=== PATIENT | male | born 2000 | race Caucasian/White ===

== ENCOUNTER 2023-05-08 11:47 | Emergency (ER) | payer OTHER, SELFPAY ==
[2023-05-08] VITALS (12 sets, daily range): BP systolic 148–181; BP diastolic 103–108; PULSE 85–134; RESP 13–24; TEMP 36.4; O2SAT 97–100
--- NOTE | ~2023-05-08 | CT_ITS ---
EXAMINATION: CT brain wo con INDICATION: Seizure activity COMPARISON: None TECHNIQUE: Standard unenhanced head CT. The dose-length product (DLP) was 529.67 mGy-cm. The mA was a djusted according to patient size. Iterative reconstruction technique was employed. FINDINGS: There is no intracranial hemorrhage, acute infarction, or abnormal mass lesion. The ventric les are normal. There is no abnormal mass effect or midline shift. The aparicio-white matter differentiat ion is normal. The basal cisterns are patent. The orbits are normal. There is mild mucosal thickening of the paranasal sinuses. There are small mastoid effusions. IMPRESSION: 1. No acute intracranial abnormality. Reviewed, dictated and finalized at location A.
--- NOTE | ~2023-05-08 | XR_ITS ---
EXAMINATION: XR chest 1V portable INDICATION: Seizure TECHNIQUE: Portable AP chest at 1321 hours COMPARISON: None available FINDINGS: The lungs are free of acute opacities. No pleural effusion or pneumothorax. The cardiomedia stinal silhouette is normal. The visualized bones and soft tissues are unremarkable. IMPRESSION: 1. No acute cardiopulmonary abnormality. Reviewed, dictated and finalized at location A.
--- NOTE | 2023-05-08 11:55 | ECG_ITS ---
Measurements Intervals [place] Rate: 116 P: 67 [place]: 155 QRS: 11 QRSD: 84 T: 37 QT: 321 QTc: 447 Interpretive Statements SINUS TACHYCARDIA ABNORMAL ECG NO PREVIOUS ECG AVAILABLE FOR COMPARISON Electronically Signed On 05-08-2023 13:15:00 CDT by Ildefonso Rebolledo D.O.
[2023-05-08 12:19] LABS: Basophils Absolute Auto 0.1 K/mm3 (0.0-0.1); Basophils Percent Auto 0.6 % (0.2-1.2); Eosinophils Absolute Auto 0.9 K/mm3 (0-0.3); Eosinophils Percent Auto 9.1 % (0-4.4); Hematocrit 45.1 % (42.0-52.0); Hemoglobin 15.3 g/dL (14.0-18.0); Immature Granulocyte Absolute 0.03 K/mm3 (0.00-0.031); Immature Granulocyte Percent A 0.3 % (0-0.5); Lymphocytes Absolute Auto 1.67 K/mm3 (0.9-3.2); Mean Corpuscular HGB Conc 33.9 g/dl (32-36); Mean Corpuscular Hemoglobin 29.7 pg (26-34); Mean Corpuscular Volume 87.6 fl (80-100); Mean Platelet Volume 9.2 fl (7.4-10.4); Monocytes Absolute Auto 0.9 K/mm3 (0.1-0.6); Monocytes Percent Auto 8.7 % (2.6-8.5); Neutrophils Absolute Auto 6.3 K/mm3 (1.3-6.7); Neutrophils Percent Auto 64.3 % (45.5-73.1); Platelet Count Result 429 k/mm3 (150-375); Red Blood Count 5.15 M/mm3 (4.6-6.20); Red Cell Distribution Width 12.5 % (11.5-14.5); White Blood Count 9.8 K/mm3 (4.5-10.0)
[2023-05-08 12:28] LABS: Alkaline Phosphatase 50 U/L (38-126); Anion Gap 18 mmol/L (8-16); Aspartate Amino Transferase 26 U/L (17-59); Bilirubin,Total 0.7 mg/dL (0.2-1.3); Blood Urea Nitrogen 7 mg/dL (9-20); Calcium 9.9 mg/dL (8.4-10.2); Carbon Dioxide 20 mmol/L (22-30); Chloride 102 mmol/L (98-107); Estimated CRCL calculation 100 ml/min; Estimated Glomerular Filt Rate > 60; Glucose 123 mg/dL (65-110); Potassium 3.9 mmol/L (3.4-5.0); Sodium 140 mmol/L (137-145)
[2023-05-08 12:30] LABS: Prothrombin Time 13.6 Seconds (11.1-14.7)
[2023-05-08 12:31] LABS: Partial Thromboplastin Time 23.7 SECONDS (22.3-36.8)
[2023-05-08 12:34] LABS: Alanine Aminotransferase 35 U/L (6-50)
[2023-05-08 12:35] LABS: Amorphous Sediment Urine Present; Appearance Urine Turbid (Clear); Bacteria Urine None Seen /hpf; Bilirubin Urine Negative (Negative); Blood Urine Negative (Negative); Color Urine Dark Yellow (Yellow); Glucose Urine UA Negative (Negative); Ketones Urine Trace mg/dL (Negative); Leukocyte Esterase Ur Negative LEU/UL (Negative); Nitrate Urine Negative (Negative); Protein Urine 2+ mg/dL (Negative); RBC Urine 0-2 /hpf (0-2); Specific Grav Ur 1.023 (1.001-1.035); Squamous Epithelial Cell Urine None seen /hpf (Few); WBC Urine 0-5 /hpf
[2023-05-08 12:36] LABS: Add Urine Microscopic? YES
[2023-05-08] MEDS: SODIUM CHLORIDE 0.9% IV 1,000 ML 999 ML IV CONT ×2 (13:15)
[2023-05-08 13:29] LABS: Creatine Kinase 83 U/L (55-170)
[2023-05-08 13:39] LABS: Ethanol < 10 mg/dL (<10)
--- NOTE | 2023-05-08 13:45 | ED.AMS ---
HPI - Altered Mental Status General Chief Complaint: Altered Mental Status Stated Complaint: AMS, drug use Time Seen by Provider: 05/08/23 12:39 Source: patient, family, EMS, RN notes reviewed and old records reviewed Mode of arrival: EMS Limitations: no limitations History of Present Illness HPI narrative: This is a 23 year old male with history of cocaine use who presents for evaluation of seizure activity. Patient states he was at his cousin's house and he remembers driving up. He woke up in ambulance. EMS states patient was found in car that was not running with no AC on. Patient was altered and diaphoretic. Patient states he was told by his cousin that he starting having a seizure while they were having a conversation. His cousin thought he was laughing. They report patient was unresponsive during seizure. Patient denies urinary incontinence or biting his tongue. PAtient reports history of seizures in the past but he does not take any medications. He denies alcohol use in 1 month. He does admit to using cocaine today. He states he think he had a seizure due to cocaine use. He jovanni any complaints right now. Related Data Home Medications Medication Instructions Recorded Confirmed No Home Medications 05/08/23 05/08/23 Allergies Allergy/AdvReac Type Severity Reaction Status Date / Time No Known Allergies Allergy Verified 05/08/23 11:54 Review of Systems Constitutional: Constitutional: Denies weakness Cardiovascular: Cardiovascular: Denies syncope, Denies rapid heart rate, Denies irregular heart rhythm, Denies leg edema and Denies dyspnea Respiratory: Respiratory: Denies chest congestion, Denies hemoptysis, Denies excessive phlegm production and Denies dyspnea Gastrointestinal: Gastrointestinal: Denies abdominal pain, Denies hematochezia, Denies diarrhea, Reports nausea and Reports vomiting Genitourinary: Genitourinary: Denies hematuria, Denies dysuria, Denies penile discharge and Denies testicular pain Musculoskeletal: Musculoskeletal: Denies joint swelling, Denies loss of height and Denies muscle weakness Neurologic: Denies syncope, Denies focal weakness and Denies weakness PMFSH Past Medical History Medical History (Updated 05/08/23 @ 19:26 by Iva Phillips MD) Polysubstance use disorder Seizure Surgical History Surgical History (Updated 05/08/23 @ 19:26 by Iva Phillips MD) No pertinent past surgical history Social History Social History (Updated 05/08/23 @ 19:26 by Iva Phillips MD) Alcohol intake: current Substance use type: marijuana and crack/cocaine Exam Const: General: no acute distress and alert Nutritional Appearance: well nourished Orientation/consciousness: patient oriented x3 Limitations: no limitations HENMT: Head: normal to inspection Mouth: Yes Normal oral and palatal mucosa present, Yes lip normal and Yes moist mucous membranes Throat: posterior oropharynx normal and uvula midline Eyes: Conjunctivae: conjunctivae normal Pupils: Equal, round and reactive pupils present EOM: EOMs intact bilaterally Neck: Neck: normal visual inspection Resp: Effort & Inspection: normal respiratory effort Auscultation: clear to auscultation bilaterally Cardio: Rate: regular rate Rhythm: regular rhythm Heart sounds: no murmurs GI: GI Palp: Yes Soft to palpation, No Tenderness to palpation present (GI), No Guarding due to palpation present (GI) and No Rigid due to palpation Auscultation: normal bowel sounds Skin: General skin exam: normal color Rashes: no rashes Wounds: no wounds Neuro: General: patient oriented x3, moves all extremities and CN's II-XI intact bilaterally Extrem: General: normal to inspection Psych: Mental Status: mental status grossly normal Affect: normal affect Attitude: cooperative Course Reevaluation(s) Reevaluation #1: Patient has no complaints. He was given 2 l iter IV NS bolus. HE is at his baseline. His parents are at bedsid
[2023-05-08 14:08] LABS: Amphetamine Screen Urine Negative (Negative); Barbiturate Screen Urine Negative (Negative); Benzodiazepines Screen Urine Negative (Negative); Cannabinoid Screen Urine Positive (Negative); Cocaine Screen Urine Positive (Negative); Methadone Screen Urine Negative (Negative); Opiate Screen Urine Negative (Negative); Phencyclidine Screen Urine Negative (Negative)
== END 2023-05-08 15:09 | disposition home or self-care (01) ==
PROVIDERS: Emergency Provider General Practice
DX: G40.909 Epilepsy, unspecified, not intractable, without status epilepticus (principal); F19.90 Other psychoactive substance use, unspecified, uncomplicated; R00.0 Tachycardia, unspecified
CPT/HCPCS: 36415; 70450; 71045; 80053; 80307; 81001; 82550; 85025; 85610; 85730; 93005; 96360; 96361; 99284; J7030

== ENCOUNTER 2024-07-29 17:47 | Emergency (ER) | payer OTHER, MEDICAID, SELFPAY ==
[2024-07-29] VITALS (9 sets, daily range): BP systolic 127–166; BP diastolic 81–101; PULSE 68–83; RESP 16–17; TEMP 37.2; O2SAT 96–99
--- NOTE | ~2024-07-29 | CT_ITS ---
EXAMINATION: CT abdomen pelvis w con DATE: 07/29/2024 20:57 INDICATION: Abdominal pain TECHNIQUE: Computed tomography (CT) of the abdomen and pelvis was performed with 100 CC Omnipaque 350 intravenous contrast. Automated exposure control and iterative reconstruction technique were employe d. Exam dose: 471.58 mGy-cm total exam DLP. COMPARISON: None. FINDINGS: Lung bases are clear of infiltrate or consolidation. Normal heart size. No pericardial or pleural effusion. The liver, gallbladder, bile ducts, pancreas, pancreatic duct and spleen are unremarkable. Normal morphology of the adrenal glands. No renal mass lesion. No urinary tract calculus or hydroureteronephrosis. The urinary bladder and pro state gland are unremarkable. Very small sliding hiatal hernia. Normal appendix. There is diffuse thickening of the wall of the colon suggesting colitis, which may be infectious or i nflammatory is an ulcerative colitis. No bowel obstruction or intraperitoneal free air. Normal caliber of the abdominal aorta. No intraperitoneal or retroperitoneal or pelvic mass lesion or adenopathy or ascites. Small fat-containing umbilical hernia The skeletal structures are unremarkable. No evidence of sacroiliitis. IMPRESSION: Diffuse colitis, which may be infectious or inflammatory; Versed of colitis is not exclu ded Normal appendix Very small sliding hiatal hernia Reviewed, dictated and finalized at Location A. Reviewed, dictated and finalized at location A. IMPRESSION: Diffuse colitis, which may be infectious or inflammatory; Versed o f colitis is not excluded Normal appendix Very small sliding hiatal hernia
[2024-07-29 18:23] LABS: Basophils Absolute Auto 0.1 K/mm3 (0.0-0.1); Basophils Percent Auto 0.6 % (0.2-1.2); Eosinophils Absolute Auto 0.2 K/mm3 (0-0.3); Eosinophils Percent Auto 2.1 % (0-4.4); Hemoglobin 15.8 g/dL (14.0-18.0); Immature Granulocyte Absolute 0.02 K/mm3 (0.00-0.031); Immature Granulocyte Percent A 0.2 % (0-0.5); Lymphocytes Absolute Auto 2.32 K/mm3 (0.9-3.2); Lymphocytes Percent Auto 22.4 % (18.3-44.2); Mean Corpuscular HGB Conc 34.3 g/dl (32-36); Mean Corpuscular Hemoglobin 30.9 pg (26-34); Mean Platelet Volume 9.3 fl (7.4-10.4); Monocytes Absolute Auto 0.7 K/mm3 (0.1-0.6); Monocytes Percent Auto 7.1 % (2.6-8.5); Neutrophils Percent Auto 67.6 % (45.5-73.1); Platelet Count Result 380 k/mm3 (150-375); Red Blood Count 5.11 M/mm3 (4.6-6.20); Red Cell Distribution Width 12.2 % (11.5-14.5); White Blood Count 10.3 K/mm3 (4.5-10.0)
[2024-07-29 18:34] LABS: Add Urine Microscopic? YES; Appearance Urine Turbid (Clear); Bacteria Urine None Seen /hpf; Bilirubin Urine 1+ (Negative); Blood Urine Negative (Negative); Color Urine Dark Yellow (Yellow); Glucose Urine UA Negative (Negative); Ketones Urine Trace mg/dL (Negative); Leukocyte Esterase Ur 1+ LEU/UL (Negative); Mucus Urine Present /lpf; Need Manual Microscopic Reviewed; Nitrate Urine Negative (Negative); Non Pathogenic Casts 0-2; Protein Urine 1+ mg/dL (Negative); RBC Urine 0-2 /hpf (0-2); Specific Grav Ur 1.033 (1.001-1.035); Squamous Epithelial Cell Urine None Seen /hpf (Few); WBC Urine 0-5 /hpf (0-3); pH Urine 7.5 (5.0-9.0)
[2024-07-29 18:38] LABS: Alanine Aminotransferase 25 U/L (6-50); Alkaline Phosphatase 63 U/L (38-126); Anion Gap 6 mmol/L (4-12); Aspartate Amino Transferase 26 U/L (17-59); Bilirubin,Total 0.9 mg/dL (0.2-1.3); Blood Urea Nitrogen 8 mg/dL (9-20); Calcium 9.4 mg/dL (8.4-10.2); Carbon Dioxide 30 mmol/L (22-30); Chloride 95 mmol/L (98-107); Estimated CRCL calculation 103 ml/min; Estimated Glomerular Filt Rate > 60; Glucose 109 mg/dL (65-110); Lipase 84 U/L (23-300); Potassium 3.5 mmol/L (3.4-5.0); Sodium 131 mmol/L (137-145)
[2024-07-29] MEDS: ONDANSETRON INJ 4 MG/2 ML VIAL IV PUSH (20:23)
[2024-07-29] MEDS: SODIUM CHLORIDE 0.9% IV 1,000 ML 999 ML IV CONT (20:23)
[2024-07-29] MEDS: MORPHINE SULFATE (*CRX) 4 MG/ML INJ IV PUSH (20:24)
--- NOTE | 2024-07-29 20:34 | PC.NURSE ---
Patient taken to CT via stretcher at this time.
--- NOTE | 2024-07-29 21:42 | ED.GENADULT ---
HPI - General Adult General Chief complaint: Abdominal Pain Stated complaint: left flank pain Time Seen by Provider: 07/29/24 19:43 History of Present Illness HPI narrative: Patient is a 24-year-old gentleman presents emergency department with chief complaint of abdominal pain. Patient reports that he has been having pain for years but over the last several days has been having worsening pain the patient states he has had no diarrhea but has had some nausea the patient reports no fever reports abdomen is cramping throughout. The patient states this is the worse than any pain he has ever had in his abdomen. The patient reports he is not currently seeing a primary reports he has not seen GI Related Data Allergies Allergy/AdvReac Type Severity Reaction Status Date / Time No Known Allergies Allergy Verified 05/08/23 11:54 Review of Systems Review of Systems: A 10 system review of systems was completed on the patient and is negative except for what is stated in the HPI. Nursing and ancillary documentation was reviewed. PMFSH Past Medical History Medical History Polysubstance use disorder Seizure Surgical History Surgical History No pertinent past surgical history Social History Social History Alcohol intake: current Substance use type: marijuana and crack/cocaine Exam Narrative: GENERAL: Well-appearing, well-nourished, and in no acute distress. HEAD: Normocephalic, atraumatic. EYES: PERRLA and EOMI. ENT: Nares clear, no rhinorrhea or epistaxis. Mucous membranes moist. NECK: Supple. CHEST: Clear to auscultation. No respiratory distress. HEART: Regular rate and rhythm. No murmur heard. Normal peripheral pulses. ABDOMEN: Soft, tenderness to palpation lower quadrants of the abdomen, nondistended, normal active bowel sounds. EXTREMITIES: Normal range of motion. No edema. SKIN: Warm, dry, no rash. NEURO: No focal deficits. Alert and oriented x3. PSYCH: Normal mood and affect. Course Vital Signs Vital signs: Vital Signs Temperature 37.2 C 07/29/24 18:00 Pulse Rate 83 07/29/24 18:00 Respiratory Rate 17 07/29/24 18:00 Blood Pressure 166/101 H 07/29/24 18:00 Pulse Oximetry 99 07/29/24 18:00 Temperature 37.2 C 07/29/24 18:00 Pulse Rate 68 07/29/24 21:31 Respiratory Rate 17 07/29/24 21:31 Blood Pressure 127/81 07/29/24 21:31 Pulse Oximetry 98 07/29/24 21:31 Medical Decision Making MDM Narrative Medical decision making narrative: Differential diagnosis includes colitis, diverticulitis, appendicitis, intra-abdominal infection, abscess, UTI, ureterolithiasis Laboratory studies were obtained showed a CBC with a white count of 10.3 electrolytes are within normal limits urinalysis showed 1+ leukocyte esterase CT scan of the abdomen pelvis showed Diffuse colitis, which may be infectious or inflammatory; Versed of colitis is not excluded Normal appendix Very small sliding hiatal hernia The patient was started on Cipro and Flagyl and discharged follow-up with primary care and also GI Vital Signs Vital Signs: Vital Signs Temperature 37.2 C 07/29/24 18:00 Pulse Rate 83 07/29/24 18:00 Respiratory Rate 17 07/29/24 18:00 Blood Pressure 166/101 H 07/29/24 18:00 Pulse Oximetry 99 07/29/24 18:00 Temperature 37.2 C 07/29/24 18:00 Pulse Rate 68 07/29/24 21:31 Respiratory Rate 17 07/29/24 21:31 Blood Pressure 127/81 07/29/24 21:31 Pulse Oximetry 98 07/29/24 21:31 Lab Data 07/29/24 18:15 07/29/24 18:15 Labs: Lab Results 07/29/24 07/29/24 Range/Units 18:15 18:16 WBC 10.3 H (4.5-10.0) K/mm3 RBC 5.11 (4.6-6.20) M/mm3 Hgb 15.8 (14.0-18.0) g/dL Hct 46.0 (42.0-52.0) % MCV 90.0 (80-100
[2024-07-29] MEDS: metroNIDAZOLE 500 MG TABLET PO (21:52)
[2024-07-29] MEDS: CIPROFLOXACIN 500 MG TAB PO (21:52)
== END 2024-07-29 21:59 | disposition home or self-care (01) ==
PROVIDERS: Emergency Medicine; Emergency Provider Emergency Medicine
DX: K52.9 Noninfective gastroenteritis and colitis, unspecified (principal)
CPT/HCPCS: 36415; 74177; 80053; 81001; 83690; 85025; 87086; 96361; 96374; 96375; 99284; A9270; J2270; J2405; J7030; Q9967

== ENCOUNTER 2024-08-07 10:07 | Outpatient (CLI) | payer MEDICAID, SELFPAY ==
[2024-08-07 11:08] LABS: CRP < 0.5 mg/dL (<1.0)
[2024-08-07 11:29] LABS: Hepatitis B Surface Antigen Negative (Negative)
[2024-08-07 11:31] LABS: Erythrocyte Sedimentation Rate 11 mm/hr (0-20)
[2024-08-07 11:35] LABS: HAV RESULT Negative (Negative); Hepatitis B Core IgM Result Negative (Negative)
[2024-08-07 11:47] LABS: Hepatitis C Virus Antibody Negative (Negative)
[2024-08-11 09:04] LABS: Immunoglobulin A 224 mg/dL (47-310); TTG IGA AB <1.0 U/mL
== END 2024-08-07 10:08 | disposition home or self-care (01) ==
PROVIDERS: Visit Provider Nurse Practitioner
DX: K52.9 Noninfective gastroenteritis and colitis, unspecified (principal); R10.9 Unspecified abdominal pain; G89.29 Other chronic pain; R11.2 Nausea with vomiting, unspecified
CPT/HCPCS: 36415; 80074; 82784; 84443; 85652; 86140; 86364

== ENCOUNTER 2024-08-08 09:33 | Outpatient (CLI) | payer MEDICAID, SELFPAY | END 2024-08-08 09:34 | disposition home or self-care (01) | PROVIDERS: Visit Provider Nurse Practitioner | DX: K52.9 Noninfective gastroenteritis and colitis, unspecified (principal); R10.9 Unspecified abdominal pain; G89.29 Other chronic pain; R11.2 Nausea with vomiting, unspecified | CPT/HCPCS: 87045; 87427; 87449 ==

== ENCOUNTER 2024-08-17 00:16 | Emergency (ER) | payer OTHER, MEDICAID, SELFPAY ==
--- NOTE | ~2024-08-17 | CT_ITS ---
CT of the Abdomen and Pelvis: Indication: Colitis Technique: 2.5 mm axial scans were obtained through the abdomen and pelvis following intravenous adm inistration of 100 cc of Omnipaque 350. Dose reduction technique was used on this scan by utilizing a utomated exposure control and iterative reconstruction technique. The dose-length product (DLP) was 3 52.87 mGy-cm. COMPARISON: 07/29/2024 Findings: Scans through the lung bases are unremarkable. The liver, spleen, pancreas, gallbladder, adrenals and kidneys are within normal limits. No evidence of aortic aneurysm. No lymphadenopathy. Suggestion of mild large bowel wall thickening at the sigmoid colon and rectum, possibly the transver se colon. No bowel obstruction. No abscess or free air. Images through the pelvis were performed. Urinary bladder unremarkable. No pelvic mass seen. No ascit es. Impression: Probable mild infectious/inflammatory colitis of the sigmoid colon and rectum. Questionable involveme nt transverse colon versus underdistention. Findings overall are mildly improved from prior exam. Reviewed, dictated and finalized at location . Impression: Probable mild infectious/inflammatory colitis of the sigmoid colon and rectum. Questionable involvement transverse colon versus underdistention. Findings over all are mildly improved from prior exam.
[2024-08-17 00:19] VITALS: BP 142/94; PULSE 77; RESP 18; TEMP 36.8; O2SAT 100
--- NOTE | 2024-08-17 00:39 | ED.ABDPAIN ---
HPI - Abdominal Pain General Chief Complaint: Abdominal Pain Stated Complaint: abd pain Time Seen by Provider: 08/17/24 00:31 History of Present Illness HPI narrative: 24-year-old male with a history of colitis presents to the emergency room for repeat evaluation of continued pain in his left lower quadrant. He does complete a course of Cipro and Flagyl and recently followed up with the GI doctor 10 days prior. Is going through outpatient evaluation was stool studies and upper and lower endoscopy that will be scheduled shortly. He states that today during dinner use having worsening pain is left lower quadrant and want to come to the ER for evaluation. Took a Vicodin home without any relief of his symptoms. Denies any trauma recent injuries or other illnesses aside from the recent colitis flare. Family history of inflammatory bowel disease and currently being evaluated for this by his GI doctor. No fever, chills, chest pain, shortness a breath, constipation. He states he has been having loose stools ever since his antibiotics but they are soft and not liquidy. No melena or bright red blood per rectum. Related Data Allergies Allergy/AdvReac Type Severity Reaction Status Date / Time No Known Allergies Allergy Verified 08/07/24 09:31 Review of Systems Review of Systems: As reviewed above in HPI [facility] Past Medical History Medical History Polysubstance use disorder Seizure Surgical History Surgical History History of shoulder surgery No pertinent past surgical history Social History Social History Smoking status: Unknown if ever smoked Alcohol intake: current Substance use type: marijuana and crack/cocaine Exam Narrative: GENERAL: [Well-appearing, well-nourished, and in no acute distress.] HEAD: [Normocephalic, atraumatic.] EYES: [PERRLA and EOMI.] ENT: Nares clear, no rhinorrhea or epistaxis. Mucous membranes moist. NECK: Supple. CHEST: [Clear to auscultation. No respiratory distress.] HEART: [Regular rate and rhythm]. No murmur heard. [Normal peripheral pulses.] ABDOMEN: [Soft, nondistended], mild tenderness to palpation left lower quadrant without peritonitis rebound., [No rigidity or guarding] EXTREMITIES: Normal range of motion. [No edema.] SKIN: Warm, dry, no rash. NEURO: [No focal deficits]. Alert and oriented [x3.] PSYCH: [Normal mood and affect.] Course Vital Signs Vital signs: Vital Signs Temperature 36.8 C 08/17/24 00:19 Pulse Rate 77 08/17/24 00:19 Respiratory Rate 18 08/17/24 00:19 Blood Pressure 142/94 H 08/17/24 00:19 Pulse Oximetry 100 08/17/24 00:19 Oxygen Delivery Room Air 08/17/24 00:19 Temperature 36.8 C 08/17/24 00:19 Pulse Rate 71 08/17/24 05:16 Respiratory Rate 15 08/17/24 05:16 Blood Pressure 138/92 H 08/17/24 05:16 Pulse Oximetry 100 08/17/24 05:16 Oxygen Delivery Room Air 08/17/24 00:19 MDM - Abdominal Pain MDM Narrative Medical decision making narrative: 24-year-old male with history of colitis presenting to the ED for evaluation of continued pain is left lower quadrant. Recently completed Cipro Flagyl and followed up with GI. Is going through outpatient upper and lower endoscopy but not scheduled just yet. Has a soft nondistended but mildly tender to palpation abdomen left lower quadrant. Afebrile with normal reassuring vital signs otherwise. He appears well in any acute distress and not ill-appearing. Laboratory studies were obtained he was treated with a weight based dose of morphine given Zofran fluid bolus. CT scan with contrast was obtained. Laboratory studies reassuring with no leukocytos or anemia. Electrolytes are within normal limits, normal hepatic and renal function panel. Negative lactic acid. Urinalysis unremarkable
[2024-08-17 00:40] LABS: Basophils Percent Auto 0.4 % (0.2-1.2); Eosinophils Absolute Auto 0.3 K/mm3 (0-0.3); Eosinophils Percent Auto 3.9 % (0-4.4); Hematocrit 44.4 % (42.0-52.0); Hemoglobin 15.4 g/dL (14.0-18.0); Immature Granulocyte Absolute 0.01 K/mm3 (0.00-0.031); Immature Granulocyte Percent A 0.1 % (0-0.5); Lymphocytes Absolute Auto 2.01 K/mm3 (0.9-3.2); Mean Corpuscular HGB Conc 34.7 g/dl (32-36); Mean Corpuscular Hemoglobin 31.2 pg (26-34); Mean Corpuscular Volume 90.1 fl (80-100); Monocytes Absolute Auto 0.6 K/mm3 (0.1-0.6); Monocytes Percent Auto 8.6 % (2.6-8.5); Neutrophils Absolute Auto 4.5 K/mm3 (1.3-6.7); Platelet Count Result 345 k/mm3 (150-375); Red Blood Count 4.93 M/mm3 (4.6-6.20); Red Cell Distribution Width 12.1 % (11.5-14.5); White Blood Count 7.4 K/mm3 (4.5-10.0)
[2024-08-17 00:45] LABS: Add Urine Microscopic? YES; Appearance Urine Cloudy (Clear); Bacteria Urine None Seen /hpf; Bilirubin Urine Negative (Negative); Blood Urine Negative (Negative); Color Urine Yellow (Yellow); Glucose Urine UA Negative (Negative); Ketones Urine Negative (Negative); Leukocyte Esterase Ur Negative LEU/UL (Negative); Nitrate Urine Negative (Negative); Non Pathogenic Casts 0-2; Protein Urine Negative (Negative); RBC Urine 0-2 /hpf (0-2); Specific Grav Ur 1.021 (1.001-1.035); Squamous Epithelial Cell Urine None Seen /hpf (Few); WBC Urine 0-5 /hpf (0-3); pH Urine 6.5 (5.0-9.0)
[2024-08-17 00:51] LABS: Alanine Aminotransferase 20 U/L (6-50); Albumin Level 4.4 g/dL (3.5-5.1); Alkaline Phosphatase 63 U/L (38-126); Anion Gap 6 mmol/L (4-12); Aspartate Amino Transferase 21 U/L (17-59); Bilirubin,Total 0.4 mg/dL (0.2-1.3); Blood Urea Nitrogen 12 mg/dL (9-20); Calcium 9.2 mg/dL (8.4-10.2); Carbon Dioxide 32 mmol/L (22-30); Chloride 102 mmol/L (98-107); Estimated CRCL calculation 111 ml/min; Estimated Glomerular Filt Rate > 60; Glucose 99 mg/dL (65-110); Lipase 137 U/L (23-300); Potassium 3.5 mmol/L (3.4-5.0); Sodium 140 mmol/L (137-145)
[2024-08-17] MEDS: ONDANSETRON INJ 4 MG/2 ML VIAL IV PUSH (00:53)
[2024-08-17] MEDS: LACTATED RINGERS 1,000 ML 999 ML IV CONT (00:53)
[2024-08-17] MEDS: MORPHINE SULFATE (*CRX) 4 MG/ML INJ IV PUSH (00:54)
[2024-08-17 03:07] LABS: Lactic Acid Reflex 0.8 mmol/L (0.7-2.0)
[2024-08-17 03:13] VITALS: BP 126/80; PULSE 56; RESP 15; O2SAT 100
[2024-08-17 05:16] VITALS: BP 138/92; PULSE 71; RESP 15; O2SAT 100
[2024-08-17 06:59] VITALS: BP 132/94; PULSE 67; RESP 15; O2SAT 100
== END 2024-08-17 07:01 | disposition home or self-care (01) ==
PROVIDERS: Emergency Provider Student in an Organized Health Care Education/Training Program
DX: K52.9 Noninfective gastroenteritis and colitis, unspecified (principal); R10.9 Unspecified abdominal pain; G89.29 Other chronic pain
CPT/HCPCS: 36415; 74177; 80053; 81001; 83605; 83690; 85025; 96361; 96374; 96375; 99284; J2270; J2405; J7120; Q9967

== ENCOUNTER 2024-08-20 00:35 | Day surgery (SDC) | payer OTHER, MEDICAID, SELFPAY ==
[2024-08-17 12:05] VITALS: BMI 27.0
[2024-08-20 06:59] VITALS: BP 134/86; PULSE 52; RESP 18; TEMP 36.3; O2SAT 100
[2024-08-20] MEDS: LACTATED RINGERS 1,000 ML 150 ML IV CONT (07:08)
--- NOTE | 2024-08-20 07:33 | P.PNAN_ITS ---
Anes - Initial Pre Proc Eval Procedure: Operation Date: 08/20/24 08:00 Proposed Procedures p Esophagogastroduodenoscopy & Colonoscopy - Andrea Khan MD Date/Time: 08/20/24 07:33 Surgeon: Andrea Khan MD Pre Op Diagnosis: Nausea and Vomiting/ colitis Patient Data Age: 24 Gender: M Height: 1.68 m Weight: 77.3 kg Last Vital Signs Temp 36.3 C L 08/20/24 06:59 Pulse 52 L 08/20/24 06:59 Resp 18 08/20/24 06:59 BP 134/86 08/20/24 06:59 Pulse Ox 100 08/20/24 06:59 O2 Del Method Room Air 08/20/24 06:59 Allergies Allergy/AdvReac Type Severity Reaction Status Date / Time No Known Allergies Allergy Verified 08/20/24 06:55 Home Medications Medication Instructions Recorded Confirmed Type amoxicillin 875 mg-potassium 1 tablet PO Q12H 10 days #20 tabs 08/17/24 08/20/24 Rx clavulanate 125 mg tablet dicyclomine 20 mg tablet 20 mg PO TID PRN abdominal pain 08/17/24 08/20/24 Rx #20 tabs ondansetron 4 mg disintegrating 4 mg PO Q8H PRN nausea and 08/17/24 08/20/24 Rx tablet vomiting #10 tabs Patient hx anesthesia problems: none Family hx anesthesia problems: none Results Review: All pre-operative results and documents have been reviewed as part of the pre- operative evaluation. [facility] Past Medical History Medical History Polysubstance use disorder Seizure Surgical History Surgical History History of shoulder surgery No pertinent past surgical history Social History Social History Smoking status: Unknown if ever smoked Alcohol intake: former Drinks per week: 4 Substance use: current Substance use type: marijuana and crack/cocaine Other substance usage details: crack/cocaine quit 11/2023 Living arrangements: with family Spiritual care concerns: No Anes - Eval Final PreProcedure Day of Procedure 08/20/24 07:33 Patient weight: overweight Heart: regular rate and rhythm Lungs: clear to auscultation Airway: Mallampati scale class II Neurological: alert and oriented Last oral intake: >/= 8 hours ASA classification: II Emergent: no Anesthetic plan: proceed Anesthesia type and monitoring: general GIVS and standard monitoring Results Review: All pre-operative results and documents have been reviewed as part of the pre- operative evaluation. Informed Consent: The patient's anesthetic plan and its attendant risks and benefits were discussed with the patient/family/POA. Questions were solicited and answers provided to the satisfaction of the patient/family/POA.
--- NOTE | 2024-08-20 07:54 | WPDHPUPDATE1 ---
History and Physical Update Update Date/Time: 08/20/24 07:54 History and Physical has been reviewed, including an updated exam of the patient. There are NO changes in the patient's condition. Risks, benefits, and alternatives have been discussed and questions answered. Patient agrees to proceed with procedure.
--- NOTE | 2024-08-20 08:11 | SUR.OPER ---
EGD completed at 806,colonoscopy started at 810
[2024-08-20 08:23] VITALS: BP 110/65; PULSE 68; RESP 22; O2SAT 97
[2024-08-20 08:33] VITALS: BP 109/61; PULSE 62; RESP 18; O2SAT 97
[2024-08-20 08:43] VITALS: BP 117/77; PULSE 73; RESP 20; O2SAT 97
== END 2024-08-20 08:48 | disposition home or self-care (01) ==
PROVIDERS: Referring Provider Nurse Practitioner; Visit Provider Internal Medicine Gastroenterology
PROC: 0DJ08ZZ Inspection of Upper Intestinal Tract, Via Natural or Artificial Opening Endoscopic (ICD-10-PCS; CPT 43235; principal; 2024-08-20 08:00)
DX: K29.50 Unspecified chronic gastritis without bleeding (principal); K31.89 Other diseases of stomach and duodenum; F19.90 Other psychoactive substance use, unspecified, uncomplicated; R56.9 Unspecified convulsions; G89.29 Other chronic pain; F14.11 Cocaine abuse, in remission; Z98.890 Other specified postprocedural states
CPT/HCPCS: 43239; 45378; 88305; J2003; J2704; J7120

== ENCOUNTER 2024-08-29 05:35 | Emergency (ER) | payer OTHER, MEDICAID, SELFPAY ==
--- NOTE | ~2024-08-29 | CT_ITS ---
EXAMINATION: CT abdomen pelvis w con DATE: 08/29/2024 06:50 INDICATION: Abdominal pain. TECHNIQUE: Computed tomography (CT) of the abdomen and pelvis was performed with 100 mL Omnipaque 350 intravenous contrast. Automated exposure control and iterative reconstruction technique were employe d. The dose-length product was 447.22 mGy-cm. COMPARISON: CT abdomen and pelvis 08/17/24 FINDINGS: The visualized portions of the lung bases are clear without pneumonia or pleural effusion. The heart size is normal. No pericardial effusion. The liver, gallbladder, spleen, pancreas, adrenal glands, and kidneys are normal. There are no dilated loops of bowel. The appendix is normal. There ar e no pathologically enlarged lymph nodes. There is no free intraperitoneal fluid. There is an umbilic al hernia containing fat. The bones are unremarkable. IMPRESSION: 1. Umbilical hernia containing fat. Reviewed, dictated and finalized at location A.
[2024-08-29 05:59] VITALS: BP 143/81; PULSE 78; RESP 18; TEMP 36.7; O2SAT 100
[2024-08-29 06:13] LABS: Basophils Percent Auto 0.5 % (0.2-1.2); Eosinophils Absolute Auto 0.3 K/mm3 (0-0.3); Eosinophils Percent Auto 4.3 % (0-4.4); Hematocrit 44.4 % (42.0-52.0); Hemoglobin 15.1 g/dL (14.0-18.0); Immature Granulocyte Absolute 0.03 K/mm3 (0.00-0.031); Immature Granulocyte Percent A 0.5 % (0-0.5); Lymphocytes Absolute Auto 1.07 K/mm3 (0.9-3.2); Lymphocytes Percent Auto 16.3 % (18.3-44.2); Mean Corpuscular Hemoglobin 31.3 pg (26-34); Mean Corpuscular Volume 91.9 fl (80-100); Mean Platelet Volume 9.4 fl (7.4-10.4); Monocytes Absolute Auto 0.6 K/mm3 (0.1-0.6); Monocytes Percent Auto 8.5 % (2.6-8.5); Neutrophils Absolute Auto 4.6 K/mm3 (1.3-6.7); Neutrophils Percent Auto 69.9 % (45.5-73.1); Platelet Count Result 313 k/mm3 (150-375); Red Blood Count 4.83 M/mm3 (4.6-6.20); Red Cell Distribution Width 11.9 % (11.5-14.5); White Blood Count 6.6 K/mm3 (4.5-10.0)
[2024-08-29 06:18] LABS: Add Urine Microscopic? NO; Appearance Urine Clear (Clear); Bilirubin Urine Negative (Negative); Blood Urine Negative (Negative); Color Urine Yellow (Yellow); Glucose Urine UA Negative (Negative); Ketones Urine Negative (Negative); Leukocyte Esterase Ur Negative LEU/UL (Negative); Nitrate Urine Negative (Negative); Protein Urine Negative (Negative); Specific Grav Ur 1.016 (1.001-1.035); Urobilinogen Urine 0.2 mg/dL (<2.0)
[2024-08-29 06:27] LABS: Alanine Aminotransferase 28 U/L (6-50); Albumin Level 4.6 g/dL (3.5-5.1); Alkaline Phosphatase 66 U/L (38-126); Anion Gap 7 mmol/L (4-12); Aspartate Amino Transferase 22 U/L (17-59); Bilirubin,Total 0.4 mg/dL (0.2-1.3); Blood Urea Nitrogen 9 mg/dL (9-20); Calcium 9.3 mg/dL (8.4-10.2); Carbon Dioxide 30 mmol/L (22-30); Chloride 103 mmol/L (98-107); Estimated CRCL calculation 111 ml/min; Estimated Glomerular Filt Rate > 60; Glucose 99 mg/dL (65-110); Lipase 74 U/L (23-300); Potassium 4.2 mmol/L (3.4-5.0); Sodium 140 mmol/L (137-145)
--- NOTE | 2024-08-29 07:27 | ED_ITS ---
HPI - Abdominal Pain General Chief Complaint: Abdominal Pain Stated Complaint: abd pain Time Seen by Provider: 08/29/24 06:55 History of Present Illness HPI narrative: Patient is a 24-year-old male who presents ER with diffuse abdominal pain. Cramping in nature. Has had evaluations past by GI and has been told that he has gastritis. She takes omeprazole daily. He also has Bentyl at home that he takes on occasion. Symptoms may occur before or after eating. They can occur in the evening or in the morning. His no diarrhea or blood in his stool this time. No known sick contacts. Denies urinary symptoms. Related Data Allergies Allergy/AdvReac Type Severity Reaction Status Date / Time No Known Allergies Allergy Verified 08/20/24 06:55 Review of Systems Review of Systems: All systems reviewed & are unremarkable except as noted in HPI and below Constitutional: Constitutional: Reports no additional constitutional complaints Cardiovascular: Cardiovascular: Reports no additional cardiovascular complaints Respiratory: Respiratory: Reports no additional respiratory complaints Gastrointestinal: Gastrointestinal: Reports abdominal pain, Denies diarrhea, Denies nausea and Denies vomiting Genitourinary: Genitourinary: Reports no additional male genitourinary compl aints [facility] Past Medical History Medical History Polysubstance use disorder Seizure Surgical History Surgical History History of shoulder surgery No pertinent past surgical history Social History Social History Smoking status: Unknown if ever smoked Alcohol intake: former Drinks per week: 4 Substance use: current Substance use type: marijuana and crack/cocaine Other substance usage details: crack/cocaine quit 11/2023 Living arrangements: with family Spiritual care concerns: No Exam Narrative: GENERAL: Well-appearing, well-nourished, and in no acute distress. HEAD: Normocephalic, atraumatic. ENT: Mucous membranes moist. CHEST: Clear to auscultation. No respiratory distress. HEART: Regular rate and rhythm. Normal peripheral pulses. ABDOMEN: Soft, nontender, nondistended. EXTREMITIES: Normal range of motion. No edema. SKIN: Warm, dry, no rash. NEURO: Alert and oriented x3. PSYCH: Normal mood and affect. Course Course Emergency Course: Looks well. Benign exam. Lab work and imaging without acute issue. May have IBS. Recommend follow-up with GI are PCP. Also encouraged patient to increase dose of omeprazole to twice a day. Vital Signs Vital signs: Vital Signs Temperature 98.1 F 08/29/24 05:59 Pulse Rate 78 08/29/24 05:59 Respiratory Rate 18 08/29/24 05:59 Blood Pressure 143/81 H 08/29/24 05:59 Pulse Oximetry 100 08/29/24 05:59 Temperature 98.1 F 08/29/24 05:59 Pulse Rate 78 08/29/24 05:59 Respiratory Rate 18 08/29/24 05:59 Blood Pressure 143/81 H 08/29/24 05:59 Pulse Oximetry 100 08/29/24 05:59 MDM - Abdominal Pain Lab Data 08/29/24 05:57 08/29/24 05:57 Labs: Lab Results 08/29/24 Range/Units 05:57 WBC 6.6 (4.5-10.0) K/mm3 RBC 4.83 (4.6-6.20) M/mm3 Hgb 15.1 (14.0-18.0) g/dL Hct 44.4 (42.0-52.0) % MCV 91.9 (80-100) fl MCH 31.3 (26-34) pg MCHC 34.0 (32-36) g/dl RDW 11.9 (11.5-14.5) % Plt Count 313 (150-375) k/mm3 MPV 9.4 (7.4-10.4) fl Immature Gran % (Auto) 0.5 (0-0.5) % Neut % (Auto) 69.9 (45.5-73.1) % Lymph % (Auto) 16.3 L (18.3-44.2) % [place] % (Auto) 8.5 (2.6-8.5) % Eos % (Auto) 4.3 (0-4.4) % Baso % (Auto) 0.5 (0.2-1.2) % Lymph # (Auto) 1.07 (0.9-3.2) K/mm3 [place] # (Auto) 0.6 (0.1-0.6) K/mm3 Eos # (Auto) 0.3 (0-0.3) K/mm3 Baso # (Auto) 0.0 (0.0-0.1) K/mm3 Abs Immat Gran (auto) 0.03 (0.00-0.031) K/mm3 Absolute Neuts (auto) 4.6 (1.3-6.7) K/mm3 Absolute Nucleated RBC 0.000 (0.0-0.012) K/mm3 Nucleated RBC % 0.0 (0.0-0.2) % Sodium 140 (137-145) mmol/L Potassium 4.2 (3.4-5.0) mmol/L Chloride 103 (98-107) mmol/L Carbon Dioxide 30 (22-30) mmol/L Anion Gap 7 (4-12) mmol/L BUN 9 (9-20) mg/dL Creatinine 0.80 (0.7-1.3) mg/dL Estim Creat Clear Calc 111 ml/min Estimated GFR > 60 (59 - ) Glucose 99 (65-110) mg/dL Calcium 9.3 (8.4-10.2) mg/dL Total Bilirubin 0.4 (0.2-1.3) mg/dL AST 22 (17-59) U/L ALT 28 (6-50) U/L Alkaline Phosphatase 66 (38-126) U/L Total Protein 8.0 (6.3-8.2) g/dL Albumin 4.6 (3.5-5.1) g/dL Lipase 74 (23-300) U/L Urine Color Yellow (Yellow) Urine Appearance Clear (Clear) Urine pH 6.0 (5.0-9.0) Ur Specific [place] 1.016 (1.001-1.035) Urine Protein Negative (Negative) mg/dL Urine Glucose (UA) Negative (Negative) mg/dL Urine Ketones Negative (Negative) mg/dL Ur Blood (Man) Negative (Negative) Urine Nitrate Negative (Negative) Urine Bilirubin Negative (Negative) Urine Urobilinogen 0.2 (<2.0) mg/dL Leukocyte Esterase Rfl Negative (Negative) HERVE/UL Imaging Data Radiologist's impression: ITS Impressions Abdomen/Pelvis CT 08/29/24 06:52 IMPRESSION: 1. Umbilical hernia containing fat. Discharge Plan Discharge Clinical Impression: Chronic abdominal pain Patient Disposition: Home, Self-Care Condition: Stable Instructions: Abdominal Pain (ED) Additional Instructions: Return to the emergency department if you develop severe abdominal pain, severe nausea and vomiting to the point where you are unable to keep down fluids, if you develop chest pain or difficulty breathing, blood in your stool, dizziness or fainting, or if you develop any other new or concerning symptoms as these could be signs of more serious medical illness. Try to stay well hydrated. Prescriptions: No Action dicyclomine 20 mg tablet 20 mg PO TID PRN (Reason: abdominal pain) Qty: 20 0RF ondansetron 4 mg tablet,disintegrating 4 mg PO Q8H PRN (Reason: nausea and vomiting) Qty: 10 0RF amoxicillin-pot clavulanate 875-125 mg tablet 1 tablet PO Q12H 10 Days Qty: 20 0RF omeprazole 20 mg capsule,delayed release(DR/EC) 20 mg PO .daily Qty: 30 2RF Follow-up/Referrals: PHYSICIAN,STUDENT TEACHING COORDINATOR [Primary Care Provider] - 1 Week Andrea Khan MD [Physician] - 1 Week
== END 2024-08-29 07:37 | disposition home or self-care (01) ==
LOC: ANHED 07:32 → ANH3MEDSUR 07:37
PROVIDERS: Emergency Medicine; Emergency Provider Emergency Medicine
DX: R10.9 Unspecified abdominal pain (principal); G89.29 Other chronic pain; K42.9 Umbilical hernia without obstruction or gangrene
CPT/HCPCS: 36415; 74177; 80053; 81003; 83690; 85025; 99284; Q9967